=== PATIENT | female | born 2000 | race Caucasian/White ===

== ENCOUNTER 2022-12-12 13:37 | Emergency (ER) | payer OTHER ==
[~2022-12-12] VITALS: Ht 165.1 cm; Wt 46.7 kg
[2022-12-12] MEDS ORDERED: TRI-SPRINTEC T1 EACH PO (13:52)
[2022-12-12] MEDS ORDERED: SEROQUEL50 MG PO (13:52)
== END 2022-12-12 16:49 | disposition home or self-care (01) ==
LOC: ER 13:37
DX: J03.80 Acute tonsillitis due to other specified organisms (principal)